=== PATIENT | male | born 1950 | race Caucasian/White ===

== ENCOUNTER 2021-10-17 14:24 | Emergency (ER) | payer MEDICARE ==
[~2021-10-17 14:24] MED LIST: ACET-3385 PO; ASCO500 PO; ASPI-1450 PO; BISA10SU11 PR; BUME1TAB34 PO; CARV6 PO; MAGN-169 PO; OXYC-490 PO; PANT-31 PO; POTA-206 PO; ZINC220C14 PO; ZOLP-280 PO; ZOSY3375FZ IV
== END 2021-10-17 16:10 | disposition left against medical advice (07) ==
LOC: EMS 14:25
DX: L08.9 Local infection of the skin and subcutaneous tissue, unspecified (principal); Z53.21 Procedure and treatment not carried out due to patient leaving prior to being seen by health care provider